=== PATIENT | female | born 1995 | race Caucasian/White ===

== ENCOUNTER 2019-01-18 13:19 | Emergency (ER) | payer BC ==
[2019-01-18] MEDS ORDERED: predniSONE 20 MG Tab PO ONE (13:20)
[2019-01-18] MEDS ORDERED: Cefuroxime 250 MG Tab PO ONE (13:20)
[2019-01-18] MEDS ORDERED: Take Home: Cefuroxime 250 MG Tab, 2 Tab Pack PO ONE (13:37)
[2019-01-18] MEDS ORDERED: Take Home: predniSONE 20 MG, 2 Tab Pack PO ONE (13:38)
--- NOTE | 2019-01-18 13:42 | EDM.PDOC ---
ED HPI GENERAL MEDICAL PROBLEM - General Chief Complaint: General Stated Complaint: FEEL SOMETHING GROWING IN MY NECK Time Seen by Provider: 01/18/19 13:33 Source of Information: Reports: Patient History Limitations: Reports: No Limitations - History of Present Illness INITIAL COMMENTS - FREE TEXT/NARRATIVE: Roxanne is a 23 year old female who presents to the clinic with c/o sore throat and swelling in her neck. She reports it has been there since about Saturday but the lump seems to be enlarging. She reports she started to get very anxious over it and got worked up and was having difficulty breathing, prompting Ed presentation. She reports she is breathing better now and has seemed to calm down. Does report issues with sinus congestion and allergies. Has not had any fever or chills. Denies any chest pain or shortness of breath currently. No other complaints. Onset Date: 01/13/19 Duration: Getting Worse Location: Reports: Neck, Other (throat) Quality: Reports: Ache Associated Symptoms: Denies: Confusion, Chest Pain, Cough, cough w sputum, Diaphoresis, Fever/Chills, Headaches, Loss of Appetite, Malaise, Nausea/Vomiting , Rash, Seizure, Shortness of Breath, Syncope, Weakness Left Neck Pain Score (Numeric/FACES): 5 - Related Data Allergies Allergy/AdvReac Type Severity Reaction Status Date / Time Penicillins Allergy Anaphylactic Verified 01/18/19 13:26 Shock Home Meds: Home Meds Cefuroxime Axetil [Ceftin] 250 mg PO BID 9 Days #18 tablet 01/18/19 [Rx] predniSONE [Prednisone] 20 mg PO DAILY #3 tablet 01/18/19 [Rx] Past Medical History - Past Health History Medical/Surgical History: Denies Medical/Surgical History Social & Family History - Family History Family Medical History: Noncontributory - Tobacco Use Smoking Status *Q: Current Every Day Smoker Years of Tobacco use: 5 Packs/Tins Daily: 1 - Caffeine Use Caffeine Use: Reports: Soda - Recreational Drug Use Recreational Drug Use: No ED ROS GENERAL - Review of Systems Review Of Systems: ROS reveals no pertinent complaints other than HPI. ED EXAM, GENERAL - Physical Exam Exam: See Below Exam Limited By: No Limitations General Appearance: Alert, WD/WN, No Apparent Distress Eye Exam: Bilateral Eye: EOMI, Normal Fundi, Normal Inspection, PERRL Ears: Normal External Exam, Normal Canal, Hearing Grossly Normal, Normal TMs Nose: Nasal Swelling, Clear Rhinorrhea Throat/Mouth: Normal Lips, Normal Teeth, Normal Gums, No Airway Compromise, Other (erythema to posterior pharynx) Head: Atraumatic, Normocephalic Neck: Supple, Full Range of Motion, Lymphadenopathy (L), Tender Lateral (left) Respiratory/Chest: No Respiratory Distress, Lungs Clear, Normal Breath Sounds, No Accessory Muscle Use, Chest Non-Tender Cardiovascular: Normal Peripheral Pulses, Regular Rate, Rhythm, No Edema, No Gallop, No JVD, No Murmur, No Rub Neurological: Alert, Oriented, CN II-XII Intact, Normal Cognition, Normal Gait, Normal Reflexes, No Motor/Sensory Deficits Psychiatric: Anxious Skin Exam: Warm, Dry, Intact, Normal Color, No Rash Lymphatic: Adenopathy (left anterior cervical) Course - Vital Signs Last Recorded V/S: Last Vital Signs Temp 99.7 F 01/18/19 13:21 Pulse 100 01/18/19 13:21 Resp 18 01/18/19 13:21 BP 145/92 H 01/18/19 13:21 Pulse Ox 99 01/18/19 13:21 - Orders/Labs/Meds Meds: Medications Discontinued Medications Generic Name Dose Route Start Last Admin Trade Name Jose Ramonq PRN Reason Stop Dose Admin Cefuroxime Axetil 1 packet 01/18/19 13:37 01/18/19 13:45 Take Home: Cefuroxime 250 Mg, 2 Tab Pack PO 01/18/19 13:38 1 packet ONETIME ONE Administration Prednisone 1 packet 01/18/19 13:38 01/18/19 13:46 Take Home: Prednisone 20 Mg, 2 Tab Pack PO 01/18/19 13:39 1 packet ONETIME ONE Administration Departure - Departure Time of Disposition: 13:39 Disposition: Home, Self-Care 01 Condition: Good Clinical Impression: Lymphadenitis, acute Pharyngitis Qualifiers: Pharyngitis/tonsillitis etiology: unspecified etiology Qualified Code(s): J02.9 - Acute pharyngitis, unspecified - Discharge Information Prescriptions: Cefuroxime Axetil [Ceftin] 250 mg PO BID 9 Days #18 tablet predniSONE [Prednisone] 20 mg PO DAILY #3 tablet Instructions: Lymphadenopathy, Pharyngitis, [id number] Forms: ED Department Discharge Additional Instructions: - Ceftin 250 mg twce daily x 10 days - Prednisone 20 mg daily x 5 days - Rest and push fluids - Tylenol or ibuprofen as needed - Warm compress to area as needed for pain - Follow up if swollen lymph nodes worsen or do not improve after finishing antibiotic
== END 2019-01-18 13:48 | disposition home or self-care (01) ==
LOC: CC.ED 13:19
DX: L04.0 Acute lymphadenitis of face, head and neck (principal); J02.9 Acute pharyngitis, unspecified; F17.210 Nicotine dependence, cigarettes, uncomplicated; Z88.0 Allergy status to penicillin; Z79.899 Other long term (current) drug therapy
CPT/HCPCS: 99283; A9270